=== PATIENT | male | born 1965 | race Two or more races ===

== ENCOUNTER 2019-06-26 10:53 | Inpatient (IN) | payer OTHER, SELFPAY ==
[~2019-06-26] VITALS: Ht 172.7 cm; Wt 71.7 kg
--- NOTE | 2019-06-26 11:07 | NUR ---
PT BIB BY . PT WAS ARRESTED AND WAS TAKEN TO CARE HOME. IN TRIAGE AT CARE HOME HIS BP WAS TOO HIGH FOR INCARCERATION. PT BP IN ROOM IS 237/164. MD IS BEDSIDE FOR ASSESSMENT. IV IS STARTED. EKG COMPLETE. PT IS CONNECTED TO MONITORING EQUIPMENT. PT WAS ARRESTED AND WAS COOPERATIVE WITH POLICE. UPON HIS ARRIVAL TO ED HE CAME LETHARGIC.
[2019-06-26] MEDS ORDERED: LABETALOL 5MG/ML, 20ML ONE (11:13)
--- NOTE | 2019-06-26 11:15 | NUR ---
task RN note : report received from law enforcement. 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 pt awakens to loud voice and follows commands, generalized weakness noted with no focal weakness, pt denies chest pain, denies headache, denies sob. pt is known to abuse methamphetamine neuro intact on arrival, no drift, bilateral grasp weak but equal. pupils equal, round and reactive 2mm. face symmetrical. pt seen and examined by EDMD Delgado who was briefed on decreased LOC and timeline. EKG taken on arrival by RN and reviewed by EDMD. pt to have CT, lab and med for htn.
[2019-06-26 11:29] LABS: BASOPHILS # (AUTO) 0.04 x10^3/uL (0-0.1); BASOPHILS % (AUTO) 1 % (0-1); EOSINOPHILS # (AUTO) 0.27 x10^3/uL (0-0.4); EOSINOPHILS % (AUTO) 4 % (1-7); LYMPHOCYTES % (AUTO) 21 % (22-44); MD NO; MEAN CORPUSCULAR HEMOGLOBIN 27.4 pg (27.5-34.5); MEAN CORPUSCULAR HGB CONC 32.9 g/dL (33.2-36.2); MEAN CORPUSCULAR VOLUME 83.2 fL (81-97); MONOCYTES # (AUTO) 0.72 x10^3/uL (0.2-0.8); MONOCYTES % (AUTO) 11 % (2-9); NEUTROPHILS # (AUTO) 4.41 x10^3/uL (1.8-6.8); NEUTROPHILS % (AUTO) 64 % (42-75); PLATELET COUNT 235 x10^3/uL (130-400); RED BLOOD COUNT 6.22 x10^6/uL (4.38-5.82)
[2019-06-26] MEDS ORDERED: LABETALOL 5MG/ML, 20ML IVPush ONE ×2 (11:30→12:30)
--- NOTE | 2019-06-26 11:35 | NUR ---
report given to primary RN Kamaljit. CT paged to collect pt.
[2019-06-26 11:41] LABS: ALANINE AMINOTRANSFERASE 33 U/L (12-78); ALBUMIN 3.6 g/dL (3.4-5.0); ANION GAP 7 mmol/L (5-15); CHLORIDE 104 mmol/L (98-107); CREATININE 1.02 mg/dL (0.7-1.3)
[2019-06-26 11:45] LABS: ALKALINE PHOSPHATASE 56 U/L (45-117); BILIRUBIN,TOTAL 0.3 mg/dL (0.2-1.0); TOTAL PROTEIN 8.1 g/dL (6.4-8.2)
[2019-06-26 11:49] LABS: TROPONIN I 0.298 ng/mL (0.000-0.045)
--- NOTE | 2019-06-26 12:12 | NUR ---
PT BECOMING INCREASINGLY LETHARGIC AND UNRESONSIVE. NOTIFIED. REPEAT EKG COMPLETE. SECONF IV STARTED
[2019-06-26] MEDS ORDERED: NALOXONE 0.4 MG/ML, 1ML ONE (12:50)
[2019-06-26] MEDS ORDERED: OMNIPAQUE 350 MG/ML, 75ML BOTTLE ONE (12:53)
--- NOTE | 2019-06-26 13:03 | NUR ---
[facility] deptuties leaving at this time as pt is not currently under custody. pt to be admitted, deputies instructed RN to call them upon discharge so that they can collect the patient. pt's belongings (wallet, cards, pardo) left at bedside by deputies. phone number to call upon discharge: [facility] deputy supervisor pairing and inspecting: [phone]; [phone] [facility] dispatch: [phone] this was relayed to primary RN Lelia
--- NOTE | 2019-06-26 13:10 | NUR ---
REPORT TO MELISSA REYEZ
[2019-06-26] MEDS ORDERED: NALOXONE 0.4 MG/ML, 1ML IVPush ONE (13:30)
[2019-06-26 13:35] LABS: AMPHETAMINE SCREEN, URINE Positive (Negative); CANNABINOID SCREEN, URINE Negative (Negative); COCAINE SCREEN, URINE Negative (Negative); METHADONE SCREEN, URINE Negative (Negative); OPIATE SCREEN, URINE Negative (Negative)
[2019-06-26 13:36] LABS: BARBITURATE SCREEN, URINE Negative (Negative); BENZODIAZEPINE SCREEN, URINE Negative (Negative)
[2019-06-26] MEDS ORDERED: APIXABAN 5 MG TABLET PO ONE (14:00)
--- NOTE | 2019-06-26 14:03 | NUR ---
SEEN BY NEURO. NOT A CANIDATE FOR TPA WILL GIVE ELIQUIS
[2019-06-26] MEDS ORDERED: NALOXONE 1 MG/ML, 2ML ONE (14:24)
[2019-06-26] MEDS ORDERED: ACETAMINOPHEN 325 MG TABLET PO PRN (14:30)
[2019-06-26] MEDS ORDERED: ONDANSETRON 2MG/ML, 2ML IVPush PRN (14:30)
--- NOTE | 2019-06-26 14:30 | NUR ---
2MG OF NARCAN GIVEN PT WILL MILD RESPONSE AND ONE EPISODE OF EYE OPENING
[2019-06-26 14:46] LABS: TROPONIN I 0.299 ng/mL (0.000-0.045)
[2019-06-26 14:50] LABS: FREE T4 (FREE THYROXINE) 1.06 ng/dL (0.76-1.46)
--- NOTE | 2019-06-26 15:00 | NUR ---
ATTEMPT NG TUBE X2 PT SELF REMOVED. UNABLE TO REDIRECT
[2019-06-26 15:50] LABS: INTERNATIONAL NORMALIZED RATIO 1.03 (0.93-1.1); PROTHROMBIN TIME 10.9 Seconds (9.6-11.5)
[2019-06-26] MEDS: POTASSIUM CHLORIDE 20 MEQ, MAGNESIUM SULFATE 2 GM, THIAMINE 200 MG, MVI ADULT 10 ML, FO... IV SCH (16:23)
[2019-06-26 16:27] LABS: MICROSCOPIC AUTO
[2019-06-26 16:28] LABS: CULTURE INDICATED? NO
[2019-06-26] MEDS: FAMOTIDINE 20 MG/2 ML IVPush SCH (20:28)
[2019-06-26] MEDS: ATORVASTATIN 80 MG TABLET PO SCH (20:29)
[2019-06-26 20:56] LABS: TROPONIN I 0.293 ng/mL (0.000-0.045)
[2019-06-26] MEDS: APIXABAN 5 MG TABLET PO SCH (21:00)
[2019-06-27] MEDS: LABETALOL 5MG/ML, 20ML IVPush PRN ×2 (02:39→09:12)
[2019-06-27 04:00] VITALS: BP 161/92
[2019-06-27 05:21] LABS: ANION GAP 6 mmol/L (5-15); CALCIUM 7.9 mg/dL (8.5-10.1); CHLORIDE 106 mmol/L (98-107)
[2019-06-27 05:35] LABS: CHOL/HDL RATIO 6.3; CHOLESTEROL, TOTAL 158 mg/dL (140-239); CREATININE 0.87 mg/dL (0.7-1.3); HDL CHOL % 16 % (26-37); HDL CHOLESTEROL (DIRECT) 25 mg/dL (40-60); LDL CHOLESTEROL,CALCULATED 84 mg/dL (54-169); LDL/HDL RATIO 3.4 (0.5-3.0); TRIGLYCERIDES 247 mg/dL (50-200); VLDL CHOLESTEROL 49 mg/dL (0-25)
[2019-06-27 06:12] LABS: BASOPHILS # (AUTO) 0.03 x10^3/uL (0-0.1); BASOPHILS % (AUTO) 0 % (0-1); EOSINOPHILS # (AUTO) 0.39 x10^3/uL (0-0.4); EOSINOPHILS % (AUTO) 4 % (1-7); LYMPHOCYTES # (AUTO) 1.77 x10^3/uL (1-3.4); LYMPHOCYTES % (AUTO) 20 % (22-44); MD NO; MEAN CORPUSCULAR HGB CONC 32.8 g/dL (33.2-36.2); MEAN CORPUSCULAR VOLUME 82.2 fL (81-97); MEAN PLATELET VOLUME 9.4 fL (7.4-10.4); MONOCYTES # (AUTO) 0.67 x10^3/uL (0.2-0.8); MONOCYTES % (AUTO) 8 % (2-9); NEUTROPHILS # (AUTO) 6.11 x10^3/uL (1.8-6.8); NEUTROPHILS % (AUTO) 68 % (42-75); PLATELET COUNT 245 x10^3/uL (130-400); RED BLOOD COUNT 5.89 x10^6/uL (4.38-5.82); RED CELL DISTRIBUTION WIDTH 15.1 % (9.4-14.8)
[2019-06-27] MEDS ORDERED: POTASSIUM CHLORIDE 10% 20 MEQ/15 ML UDC PO ONE (06:30)
[2019-06-27] MEDS: SENNA/DOCUSATE TABLET PO SCH (08:33)
[2019-06-27] MEDS: LISINOPRIL 20 MG TABLET PO SCH ×2 (08:34→21:32)
[2019-06-27] MEDS: APIXABAN 5 MG TABLET PO SCH ×2 (08:34→21:32)
[2019-06-27] MEDS: FAMOTIDINE 20 MG/2 ML IVPush SCH (08:34)
[2019-06-27] MEDS ORDERED: AMLODIPINE 5 MG TABLET PO SCH (09:00)
[2019-06-27 13:35] VITALS: BP 150/97
[2019-06-27] MEDS: POTASSIUM CHLORIDE 20 MEQ, MAGNESIUM SULFATE 2 GM, THIAMINE 200 MG, MVI ADULT 10 ML, FO... IV SCH (16:06)
[2019-06-27 21:30] VITALS: BP 150/88
[2019-06-27] MEDS: FAMOTIDINE 20 MG TABLET PO SCH (21:32)
[2019-06-27] MEDS: ATORVASTATIN 80 MG TABLET PO SCH (21:32)
[2019-06-28] VITALS (7 sets, daily range): BP systolic 147–174; BP diastolic 91–120
[2019-06-28] MEDS: LABETALOL 5MG/ML, 20ML IVPush PRN (01:58)
[2019-06-28] MEDS: hydrALAzine 20 MG/ML, 1ML IV PRN (03:17)
[2019-06-28] MEDS ORDERED: POTASSIUM CHLORIDE 20 MEQ TAB.ER.PRT PO ONE (08:00)
[2019-06-28] MEDS ORDERED: REGADENOSON 0.4 MG/5 ML SYRINGE ONE (09:22)
[2019-06-28] MEDS: LISINOPRIL 20 MG TABLET PO SCH ×2 (11:17→21:37)
[2019-06-28] MEDS: APIXABAN 5 MG TABLET PO SCH ×2 (11:17→21:37)
[2019-06-28] MEDS: FAMOTIDINE 20 MG TABLET PO SCH ×2 (11:17→21:36)
[2019-06-28] MEDS: SENNA/DOCUSATE TABLET PO SCH (11:17)
[2019-06-28] MEDS: MULTIVITAMINS/MINERALS TABLET PO SCH (11:18)
[2019-06-28] MEDS: AMLODIPINE 5 MG TABLET PO SCH ×2 (11:18→21:36)
[2019-06-28] MEDS: ATORVASTATIN 80 MG TABLET PO SCH (21:37)
[2019-06-29] VITALS (9 sets, daily range): BP systolic 150–174; BP diastolic 90–109
[2019-06-29] MEDS: LABETALOL 5MG/ML, 20ML IVPush PRN (01:21)
[2019-06-29] MEDS: hydrALAzine 20 MG/ML, 1ML IV PRN (02:18)
[2019-06-29 04:47] LABS: BASOPHILS # (AUTO) 0.01 x10^3/uL (0-0.1); BASOPHILS % (AUTO) 0 % (0-1); EOSINOPHILS # (AUTO) 0.38 x10^3/uL (0-0.4); EOSINOPHILS % (AUTO) 4 % (1-7); LYMPHOCYTES % (AUTO) 7 % (22-44); MD NO; MEAN CORPUSCULAR HEMOGLOBIN 27.2 pg (27.5-34.5); MEAN CORPUSCULAR HGB CONC 33.2 g/dL (33.2-36.2); MEAN CORPUSCULAR VOLUME 81.9 fL (81-97); MEAN PLATELET VOLUME 9.1 fL (7.4-10.4); MONOCYTES # (AUTO) 0.86 x10^3/uL (0.2-0.8); MONOCYTES % (AUTO) 10 % (2-9); NEUTROPHILS % (AUTO) 80 % (42-75); PLATELET COUNT 220 x10^3/uL (130-400)
[2019-06-29 04:56] LABS: ANION GAP 7 mmol/L (5-15); CALCIUM 8.2 mg/dL (8.5-10.1); CHLORIDE 105 mmol/L (98-107)
[2019-06-29 04:59] LABS: CREATININE 0.96 mg/dL (0.7-1.3)
[2019-06-29] MEDS: AMLODIPINE 5 MG TABLET PO SCH ×2 (08:54→19:43)
[2019-06-29] MEDS: MULTIVITAMINS/MINERALS TABLET PO SCH (08:54)
[2019-06-29] MEDS: LISINOPRIL 20 MG TABLET PO SCH ×2 (08:54→19:49)
[2019-06-29] MEDS: FAMOTIDINE 20 MG TABLET PO SCH ×2 (08:54→19:43)
[2019-06-29] MEDS: APIXABAN 5 MG TABLET PO SCH ×2 (08:54→19:43)
[2019-06-29] MEDS: SENNA/DOCUSATE TABLET PO SCH (08:54)
[2019-06-29] MEDS: METOPROLOL TARTRATE 25 MG TAB PO SCH (15:44)
[2019-06-29] MEDS: ATORVASTATIN 80 MG TABLET PO SCH (19:43)
[2019-06-30] MEDS: METOPROLOL TARTRATE 25 MG TAB PO SCH ×4 (00:15→22:49)
[2019-06-30 00:16] VITALS: BP 158/95
[2019-06-30 07:28] VITALS: BP 158/106
[2019-06-30] MEDS ORDERED: FAMOTIDINE 40 MG TABLET ONE (07:53)
[2019-06-30] MEDS: FAMOTIDINE 20 MG TABLET PO SCH ×2 (07:58→21:08)
[2019-06-30] MEDS: APIXABAN 5 MG TABLET PO SCH ×2 (07:58→21:08)
[2019-06-30] MEDS: LISINOPRIL 20 MG TABLET PO SCH ×2 (07:58→21:08)
[2019-06-30] MEDS: MULTIVITAMINS/MINERALS TABLET PO SCH (07:59)
[2019-06-30] MEDS: AMLODIPINE 5 MG TABLET PO SCH ×2 (07:59→21:08)
[2019-06-30] MEDS: SENNA/DOCUSATE TABLET PO SCH (08:02)
[2019-06-30 09:31] LABS: BASOPHILS # (AUTO) 0.01 x10^3/uL (0-0.1); BASOPHILS % (AUTO) 0 % (0-1); EOSINOPHILS # (AUTO) 0.05 x10^3/uL (0-0.4); EOSINOPHILS % (AUTO) 1 % (1-7); LYMPHOCYTES # (AUTO) 0.96 x10^3/uL (1-3.4); LYMPHOCYTES % (AUTO) 17 % (22-44); MD NO; MEAN CORPUSCULAR HEMOGLOBIN 27.2 pg (27.5-34.5); MEAN CORPUSCULAR HGB CONC 33.1 g/dL (33.2-36.2); MEAN CORPUSCULAR VOLUME 82.2 fL (81-97); MEAN PLATELET VOLUME 8.9 fL (7.4-10.4); MONOCYTES # (AUTO) 1.01 x10^3/uL (0.2-0.8); MONOCYTES % (AUTO) 18 % (2-9); NEUTROPHILS # (AUTO) 3.69 x10^3/uL (1.8-6.8); NEUTROPHILS % (AUTO) 65 % (42-75); PLATELET COUNT 198 x10^3/uL (130-400); RED BLOOD COUNT 6.01 x10^6/uL (4.38-5.82); RED CELL DISTRIBUTION WIDTH 14.7 % (9.4-14.8)
[2019-06-30 09:40] LABS: ANION GAP 8 mmol/L (5-15); CALCIUM 8.2 mg/dL (8.5-10.1); CHLORIDE 103 mmol/L (98-107); CREATININE 0.94 mg/dL (0.7-1.3)
[2019-06-30 10:41] LABS: MICROSCOPIC AUTO
[2019-06-30 11:04] LABS: CULTURE INDICATED? YES
[2019-06-30 13:43] VITALS: BP 156/88
[2019-06-30 19:56] VITALS: BP 157/84
[2019-06-30] MEDS: ATORVASTATIN 80 MG TABLET PO SCH (21:08)
[2019-06-30 22:46] VITALS: BP 148/93
[2019-07-01 01:29] VITALS: BP 144/83
[2019-07-01 05:07] LABS: ANION GAP 9 mmol/L (5-15); CALCIUM 8.2 mg/dL (8.5-10.1); CHLORIDE 103 mmol/L (98-107)
[2019-07-01 08:10] VITALS: BP 149/86
[2019-07-01] MEDS: FAMOTIDINE 20 MG TABLET PO SCH (08:11)
[2019-07-01] MEDS: MULTIVITAMINS/MINERALS TABLET PO SCH (08:11)
[2019-07-01] MEDS: SENNA/DOCUSATE TABLET PO SCH (08:11)
[2019-07-01] MEDS: APIXABAN 5 MG TABLET PO SCH (08:12)
[2019-07-01] MEDS: METOPROLOL TARTRATE 25 MG TAB PO SCH (08:12)
[2019-07-01] MEDS: LISINOPRIL 20 MG TABLET PO SCH (08:12)
[2019-07-01] MEDS: AMLODIPINE 5 MG TABLET PO SCH (08:12)
[2019-07-01] MEDS ORDERED: METO-93 PO (08:41)
[2019-07-01] MEDS ORDERED: ATOR-2 PO (08:41)
[2019-07-01] MEDS ORDERED: AMLO-150 PO (08:41)
[2019-07-01] MEDS ORDERED: LISI-170 PO (08:41)
[2019-07-01] MEDS ORDERED: APIX5TAB PO (08:41)
== END 2019-07-01 11:35 | disposition home or self-care (01) | DRG 280 ==
LOC: ED 11:49 → EDIP 13:18 → CCU 15:12 → 5SO 06-27 10:50
PROVIDERS: ADMIT Hospitalist; ATTEND Internal Medicine
DX: I16.1 Hypertensive emergency (principal); I21.A1 Myocardial infarction type 2; I63.9 Cerebral infarction, unspecified; I50.30 Unspecified diastolic (congestive) heart failure; Q21.1 Atrial septal defect; T43.621A Poisoning by amphetamines, accidental (unintentional), initial encounter; F15.10 Other stimulant abuse, uncomplicated; H55.09 Other forms of nystagmus; I11.0 Hypertensive heart disease with heart failure; I35.8 Other nonrheumatic aortic valve disorders; Z79.01 Long term (current) use of anticoagulants; Z79.899 Other long term (current) drug therapy
CPT/HCPCS: 36415; 36600; 74018; 93017; 96374; 96375; 96376; 99291; J3490; J7042; 70450; 70496; 70498; 70551; 71045; 78452; 80048; 80053; 80061; 80307; 81001; 82803; 83036; 83735; 83880; 84100; 84439; 84443; 84484; 85025; 85610; 87040; 87070; 87081; 87086; 87205; 93005; 93306; G0378; J2310; J2785; J3411; J3475; J3480; Q9967; 92523-GN; A9502; C9898; J0360; J7050